=== PATIENT | female | born 1985 | race Caucasian/White ===

== ENCOUNTER → 2021-09-26 14:46 | Outpatient (BNVA) | payer BC, SELFPAY | PROVIDERS: Visit Provider Nurse Practitioner Family | DX: Z20.822 Contact with and (suspected) exposure to COVID-19 (principal) | CPT/HCPCS: 87635 ==

== ENCOUNTER 2022-07-28 20:46 | Inpatient (IN) | payer BC, SELFPAY ==
[2022-07-28 20:58] VITALS: BP 127/82; PULSE 101; RESP 15; TEMP 36.7; O2SAT 98; BMI 23.1
--- NOTE | 2022-07-28 23:56 | W.ED.GENADLT ---
Documented by User: JASMINA Han 07/29/22 02:09 HPI - General Adult General: Chief complaint: General Medical Stated complaint: MHE Time Seen by Provider: 07/28/22 23:06 History of Present Illness: Patient is a 36-year-old female comes to the ED for methamphetamine detox. Patient would like to get some information on facilities she can detox at. Denies any SI or HI or hallucinations. She reports that she was sober for about 3 to 4 months this year but has began using methamphetamines again. The sheriffs officer who brought patient in filled out an affidavit on patient. He stated that she texted him tonight stating that she needs help and feels like she is going to hurt herself. He also stated that she called the crisis and suicide hotline while in route to [facility]. Associated symptoms: Deny chest pain, dyspnea, headache(s), nausea, rash, palpitations or vomiting Review of Systems Const: Denies: fever(s), chills or fatigue Eyes: Denies: change in vision or eye discomfort ENMT: Denies: throat pain, odynophagia, nasal discharge or nasal congestion Card: Denies: chest pain, palpitations, edema, swelling of feet/ankles, dyspnea on exertion or orthopnea Resp: Denies: dyspnea, productive cough or non-productive cough GI: Denies: abdominal pain, nausea, vomiting, diarrhea, constipation or hematochezia : Denies: flank pain, dysuria or hematuria Musc: Denies: neck pain, back pain or extremity swelling Skin/Breast: Denies: rash or new lesions Neuro: Denies: headache(s), numbness in extremities or weakness in extremities Psych: Reports: other (Methamphetamine abuse); Denies: visual hallucinations, auditory hallucinations, suicidal ideation or homicidal ideation [facility] ED PFSH: Medical History History of suicidal ideation Methamphetamine abuse No pertinent family history Social History Smoking and tobacco status: current every day smoker Physical Exam Const: COMMON NORMALS: no acute distress, patient oriented x3 and alert GENERAL APPEARANCE: cooperative and comfortable HENMT: COMMON NORMALS: normocephalic HEAD & SCALP: normocephalic MOUTH: Normal oral and palatal mucosa present THROAT: posterior oropharynx normal and uvula midline Neck/C-Spine: COMMON NORMALS: supple GENERAL: Yes normal visual inspection Resp: COMMON NORMALS: normal respiratory effort, No retractions, No use of accessory muscles and clear to auscultation bilaterally AUSCULTATION: clear to auscultation bilaterally Cardio: COMMON NORMALS: regular rate, regular rhythm, S1 normal heart sound present, S2 normal heart sound present, No gallops present (Cardio), No clicks present (Cardio), No murmurs present (Cardio) and Peripheral pulses 2+ throughout RATE: regular rate RHYTHM: regular rhythm HEART SOUNDS: S1 normal heart sound present and S2 normal heart sound present PERIPHERAL PULSES: Peripheral pulses 2+ throughout GI: COMMON NORMALS: Normal to inspection, nondistended, normoactive bowel sounds present, Soft to palpation, non-tender and no masses PALPATION: Yes Soft to palpation : COMMON NORMALS: Yes no CVA tenderness BLADDER/KIDNEY EXAM: Yes no CVA tenderness Back/Pelvis: COMMON NORMALS: no CVA tenderness Extremity: COMMON NORMALS: normal to inspection Neuro: COMMON NORMALS: patient oriented x3 SENSORIUM/ORIENTATION: Yes alert GAIT: Yes Normal gait present Psych: COMMON NORMALS: mental status grossly normal, cooperative, normal affect and speech normal SPEECH: Yes normal speech THOUGHT CONTENT: Yes Suicidality present Skin: GENERAL SKIN EXAM: dry skin Course Consultations: Consultation #1: I contacted Dr. Torres the on-call psychiatrist and told about patient case and that she has been placed on a 96-hour hold. He excepted admission into the NPU. Time: 02:04 Vital Signs: Vital signs: Vital Signs Temperature 98.1 F 07/28/22 20:58 Pulse Rate 101 H 07/28/22 20:58 Respiratory Rate 15 07/28/22 20:58 Blood Pressure 127/82 07/28/22 20:58 Pulse Oximetry 98 07/28/22 20:58 Oxygen Delivery Me thod 07/28/22 20:58 MDM - General Adult Medical Decision Making Patient is a 36-year-old female comes to the ED for mental evaluation. who brought patient and fill out affidavit and states she needs help for methamphetamine abuse and was having thoughts of suicide. I contacted Dr. Torres the on-call psychiatrist and told him about patient case and that she has been placed on a 96-hour hold. He accepted admission of patient to the NPU. Dr. Ritchie will place the admitting orders. Lab Data 07/29/22 02:17 07/29/22 02:17 Laboratory Results WBC 14.3 10^3/uL (4.0-10.0) H 07/29/22 02:17 RBC 5.17 10^6/uL (4.1-5.3) 07/29/22 02:17 Hgb 15.4 g/dL (11.5-15.3) H 07/29/22 02:17 Hct 45.6 % (37.0-47.0) 07/29/22 02:17 MCV 88.2 fl (81-99) 07/29/22 02:17 MCH 29.8 pg (28.0-34.0) 07/29/22 02:17 MCHC 33.8 g/dL (30.0-36.0) 07/29/22 02:17 RDW 11.7 % (12.1-15.1) L 07/29/22 02:17 Plt Count 331 10^3/cmm (130-400) 07/29/22 02:17 MPV 9.7 fL (7.4-10.4) 07/29/22 02:17 Neut % (Auto) 67.8 % 07/29/22 02:17 Lymph % (Auto) 20.5 % 07/29/22 02:17 [place] % (Auto) 6.5 % 07/29/22 02:17 Eos % (Auto) 4.2 % 07/29/22 02:17 Baso % (Auto) 0.8 % 07/29/22 02:17 Neut # (Auto) 9.73 10^3/uL (1.8-7.7) H 07/29/22 02:17 Lymph # (Auto) 2.9 10^3/uL (0.8-4.8) 07/29/22 02:17 [place] # (Auto) 0.9 10^3/uL (0.2-0.9) 07/29/22 02:17 Eos # (Auto) 0.6 10^3/uL (0.0-0.8) 07/29/22 02:17 Baso # (Auto) 0.1 10^3/uL (0.0-0.1) 07/29/22 02:17 Nucleated RBC % (auto) 0 % 07/29/22 02:17 Nucleated RBCs # 0.0 /100WBC 07/29/22 02:17 Sodium 138 mmol/L (136-145) 07/29/22 02:17 Potassium 3.7 mmol/L (3.5-5.1) 07/29/22 02:17 Chloride 102 mmol/L (98-107) 07/29/22 02:17 Carbon Dioxide 27 mmol/L (22-29) 07/29/22 02:17 Anion Gap 12.7 (5-19) 07/29/22 02:17 BUN 10 mg/dL (6-20) 07/29/22 02:17 Creatinine 0.4 mg/dL (0.5-0.9) L 07/29/22 02:17 GFR Calculation 180.6 mL/min (90-130) H 07/29/22 02:17 Glucose 92 mg/dL (65-115) 07/29/22 02:17 Calculated Osmolality 285 mOsm/kg (285-295) 07/29/22 02:17 Calcium 9.5 mg/dL (8.5-10.5) 07/29/22 02:17 Total Bilirubin 0.2 mg/dL (0.15-1.2) 07/29/22 02:17 AST 18 U/L (0-32) 07/29/22 02:17 ALT 39 U/L (0-33) H 07/29/22 02:17 Alkaline Phosphatase 85 U/L (35-105) 07/29/22 02:17 Total Protein 6.9 g/dL (6.6-8.7) 07/29/22 02:17 Albumin 4.2 g/dL (3.5-5.2) 07/29/22 02:17 Globulin 2.7 g/dL (1.3-4.6) 07/29/22 02:17 Lipase 44 U/L (13-60) 07/29/22 02:17 HCG, Qual Negative (Negative) 07/29/22 02:17 Urine Color Yellow (Yellow) 07/29/22 01:27 Urine Appearance Clear (CLEAR) 07/29/22 01:27 Urine pH 5 (5-7) 07/29/22 01:27 Ur Specific [place] 1.025 (1.005-1.030) 07/29/22 01:27 Urine Protein Neg (Negative) 07/29/22 01:27 Urine Glucose (UA) 1+ (Normal) H 07/29/22 01:27 Urine Ketones Negative (Negative) 07/29/22 01:27 Urine Blood Neg (Negative) 07/29/22 01:27 Urine Nitrate Negative (Negative) 07/29/22 01:27 Urine Bilirubin Neg (Negative) 07/29/22 01:27 Urine Urobilinogen Neg mg/dL (Negative) 07/29/22 01:27 Ur Leukocyte Esterase 1+ (Negative) H 07/29/22 01:27 Urine RBC None /hpf (0-2) 07/29/22 01:27 Urine WBC 5-10 /hpf (0-5) H 07/29/22 01:27 Ur Squamous Epith Cells 15-25 /hpf (0-5) H 07/29/22 01:27 Amorphous Sediment Not Reportable 07/29/22 01:27 Urine Bacteria Trace /hpf (NONE) 07/29/22 01:27 Salicylates < 0.3 mg/dL (3-10) L 07/29/22 02:17 Urine Opiates Screen Negative ng/mL (Negative) 07/29/22 01:27 Acetaminophen < 5.0 ug/mL (10-30) L 07/29/22 02:17 Ur Barbiturates Screen Negative ng/mL (Negative) 07/29/22 01:27 Ur Phencyclidine Scrn Negative ng/mL (Negative) 07/29/22 01:27 Ur Amphetamines Screen Positive ng/mL (Negative) H 07/29/22 01:27 U Benzodiazepines Scrn Negative ng/mL (Negative) 07/29/22 01:27 Urine Cocaine Screen Negative ng/mL (Negative) 07/29/22 01:27 U Marijuana (THC) Screen Positive ng/mL (Negative) H 07/29/22 01:27 Discharge Plan Discharge Patient Disposition: Admitted As Inpatient Clinical Impression: Suicidal ideation, Methamphetamine abuse Condition: Stable Coding Level of Care Code ED Theatrical Agent for Chg Fwd Exam Comprehensive Documented by User: Raymundo Ritchie, 07/29/22 03:16 HPI - General Adult General: Chief complaint: General Medical Stated complaint: MHE Time Seen by Provider: 07/28/22 23:06 PFS ED PFSH: Medical History History of suicidal ideation Methamphetamine abuse No pertinent family history Social History Smoking and tobacco status: current every day smoker Course Vital Signs: Vital signs: Vital Signs Temperature 98.1 F 07/28/22 20:58 Pulse Rate 101 H 07/28/22 20:58 Respiratory Rate 15 07/28/22 20:58 Blood Pressure 127/82 07/28/22 20:58 Pulse Oximetry 98 07/28/22 20:58 Oxygen Delivery Me thod 07/28/22 20:58 MDM - General Adult Medical Decision Making Patient is a 36-year-old female comes to the ED for mental evaluation. who brought patient and fill out affidavit and states she needs help for methamphetamine abuse and was having thoughts of suicide. I contacted Dr. Torres the on-call psychiatrist and told him about patient case and that she has been placed on a 96-hour hold. He accepted admission of patient to the NPU. Dr. Ritchie will place the admitting orders. This patient was originally seen by Mr. Anai PA-C.? I agree with his history, evaluation, and treatment. Lab Data 07/29/22 02:17 07/29/22 02:17 Laboratory Results WBC 14.3 10^3/uL (4.0-10.0) H 07/29/22 02:17 RBC 5.17 10^6/uL (4.1-5.3) 07/29/22 02:17 Hgb 15.4 g/dL (11.5-15.3) H 07/29/22 02:17 Hct 45.6 % (37.0-47.0) 07/29/22 02:17 MCV 88.2 fl (81-99) 07/29/22 02:17 MCH 29.8 pg (28.0-34.0) 07/29/22 02:17 MCHC 33.8 g/dL (30.0-36.0) 07/29/22 02:17 RDW 11.7 % (12.1-15.1) L 07/29/22 02:17 Plt Count 331 10^3/cmm (130-400) 07/29/22 02:17 MPV 9.7 fL (7.4-10.4) 07/29/22 02:17 Neut % (Auto) 67.8 % 07/29/22 02:17 Lymph % (Auto) 20.5 % 07/29/22 02:17 [place] % (Auto) 6.5 % 07/29/22 02:17 Eos % (Auto) 4.2 % 07/29/22 02:17 Baso % (Auto) 0.8 % 07/29/22 02:17 Neut # (Auto) 9.73 10^3/uL (1.8-7.7) H 07/29/22 02:17 Lymph # (Auto) 2.9 10^3/uL (0.8-4.8) 07/29/22 02:17 [place] # (Auto) 0.9 10^3/uL (0.2-0.9) 07/29/22 02:17 Eos # (Auto) 0.6 10^3/uL (0.0-0.8) 07/29/22 02:17 Baso # (Auto) 0.1 10^3/uL (0.0-0.1) 07/29/22 02:17 Nucleated RBC % (auto) 0 % 07/29/22 02:17 Nucleated RBCs # 0.0 /100WBC 07/29/22 02:17 Sodium 138 mmol/L (136-145) 07/29/22 02:17 Potassium 3.7 mmol/L (3.5-5.1) 07/29/22 02:17 Chloride 102 mmol/L (98-107) 07/29/22 02:17 Carbon Dioxide 27 mmol/L (22-29) 07/29/22 02:17 Anion Gap 12.7 (5-19) 07/29/22 02:17 BUN 10 mg/dL (6-20) 07/29/22 02:17 Creatinine 0.4 mg/dL (0.5-0.9) L 07/29/22 02:17 GFR Calculation 180.6 mL/min (90-130) H 07/29/22 02:17 Glucose 92 mg/dL (65-115) 07/29/22 02:17 Calculated Osmolality 285 mOsm/kg (285-295) 07/29/22 02:17 Calcium 9.5 mg/dL (8.5-10.5) 07/29/22 02:17 Total Bilirubin 0.2 mg/dL (0.15-1.2) 07/29/22 02:17 AST 18 U/L (0-32) 07/29/22 02:17 ALT 39 U/L (0-33) H 07/29/22 02:17 Alkaline Phosphatase 85 U/L (35-105) 07/29/22 02:17 Total Protein 6.9 g/dL (6.6-8.7) 07/29/22 02:17 Albumin 4.2 g/dL (3.5-5.2) 07/29/22 02:17 Globulin 2.7 g/dL (1.3-4.6) 07/29/22 02:17 Lipase 44 U/L (13-60) 07/29/22 02:17 HCG, Qual Negative (Negative) 07/29/22 02:17 Urine Color Yellow (Yellow) 07/29/22 01:27 Urine Appearance Clear (CLEAR) 07/29/22 01:27 Urine pH 5 (5-7) 07/29/22 01:27 Ur Specific [place] 1.025 (1.005-1.030) 07/29/22 01:27 Urine Protein Neg (Negative) 07/29/22 01:27 Urine Glucose (UA) 1+ (Normal) H 07/29/22 01:27 Urine Ketones Negative (Negative) 07/29/22 01:27 Urine Blood Neg (Negative) 07/29/22 01:27 Urine Nitrate Negative (Negative) 07/29/22 01:27 Urine Bilirubin Neg (Negative) 07/29/22 01:27 Urine Urobilinogen Neg mg/dL (Negative) 07/29/22 01:27 Ur Leukocyte Esterase 1+ (Negative) H 07/29/22 01:27 Urine RBC None /hpf (0-2) 07/29/22 01:27 Urine WBC 5-10 /hpf (0-5) H 07/29/22 01:27 Ur Squamous Epith Cells 15-25 /hpf (0-5) H 07/29/22 01:27 Amorphous Sediment Not Reportable 07/29/22 01:27 Urine Bacteria Trace /hpf (NONE) 07/29/22 01:27 Salicylates < 0.3 mg/dL (3-10) L 07/29/22 02:17 Urine Opiates Screen Negative ng/mL (Negative) 07/29/22 01:27 Acetaminophen < 5.0 ug/mL (10-30) L 07/29/22 02:17 Ur Barbiturates Screen Negative ng/mL (Negative) 07/29/22 01:27 Ur Phencyclidine Scrn Negative ng/mL (Negative) 07/29/22 01:27 Ur Amphetamines Screen Positive ng/mL (Negative) H 07/29/22 01:27 U Benzodiazepines Scrn Negative ng/mL (Negative) 07/29/22 01:27 Urine Cocaine Screen Negative ng/mL (Negative) 07/29/22 01:27 U Marijuana (THC) Screen Positive ng/mL (Negative) H 07/29/22 01:27 Discharge Plan Discharge Patient Disposition: Admitted As Inpatient Clinical Impression: Suicidal ideation, Methamphetamine abuse Condition: Stable Coding Level of Care Code ED Theatrical Agent for Noam Khan Exam Comprehensive
[2022-07-29 02:24] LABS: Basophils # 0.1 10^3/uL (0.0-0.1); Basophils % 0.8 %; Eosinophils # 0.6 10^3/uL (0.0-0.8); Eosinophils % 4.2 %; Hematocrit 45.6 % (37.0-47.0); Hemoglobin 15.4 g/dL (11.5-15.3); Lymphocytes # 2.9 10^3/uL (0.8-4.8); Lymphocytes % 20.5 %; Mean Corpuscular HGB Conc 33.8 g/dL (30.0-36.0); Mean Corpuscular Hemoglobin 29.8 pg (28.0-34.0); Mean Corpuscular Volume 88.2 fl (81-99); Mean Platelet Volume 9.7 fL (7.4-10.4); Monocytes # 0.9 10^3/uL (0.2-0.9); Monocytes % 6.5 %; Neutrophils # 9.73 10^3/uL (1.8-7.7); Neutrophils % 67.8 %; Nucleated Red Blood Cells % 0 %; Platelet Count 331 10^3/cmm (130-400); Red Blood Count 5.17 10^6/uL (4.1-5.3); Red Cell Distribution Width 11.7 % (12.1-15.1); White Blood Count 14.3 10^3/uL (4.0-10.0)
[2022-07-29 02:42] LABS: HCG, Serum Qual Negative (Negative)
[2022-07-29 02:44] LABS: Alanine Aminotransferase 39 U/L (0-33); Albumin Level 4.2 g/dL (3.5-5.2); Alkaline Phosphatase 85 U/L (35-105); Anion Gap 12.7 (5-19); Aspartate Amino Transferase 18 U/L (0-32); Blood Urea Nitrogen 10 mg/dL (6-20); Calcium 9.5 mg/dL (8.5-10.5); Carbon Dioxide 27 mmol/L (22-29); Chloride 102 mmol/L (98-107); Globulin 2.7 g/dL (1.3-4.6); Glomerular Filtration Rate 180.6 mL/min (90-130); Glucose 92 mg/dL (65-115); Lipase 44 U/L (13-60); Osmolality Calculated 285 mOsm/kg (285-295); Potassium 3.7 mmol/L (3.5-5.1); Sodium 138 mmol/L (136-145); Total Bilirubin 0.2 mg/dL (0.15-1.2); Total Protein 6.9 g/dL (6.6-8.7)
[2022-07-29 02:48] LABS: Salicylate < 0.3 mg/dL (3-10)
[2022-07-29 02:49] LABS: Acetaminophen < 5.0 ug/mL (10-30)
[2022-07-29 02:51] LABS: Amphetamines Screen Urine Positive (Negative); Barbiturates Screen Urine Negative (Negative); Benzodiazepines Screen Urine Negative (Negative); Cocaine Screen Urine Negative (Negative); Opiate Screen Urine Negative (Negative); PCP Screen Urine Negative (Negative); THC Screen Urine Positive (Negative)
[2022-07-29 02:53] LABS: Specific Gravity, Urine 1.025 (1.005-1.030); Urine Appearance Clear (CLEAR); Urine Color Yellow (Yellow); pH Urine 5 (5-7)
[2022-07-29 02:54] LABS: Add Urine Microscopic? YES; Bilirubin Urine Neg (Negative); Blood Urine Neg (Negative); Glucose Urine UA 1+ (Normal); Ketones Urine Negative (Negative); Leukocyte Esterase Urine 1+ (Negative); Nitrate Urine Negative (Negative); Protein Urine Neg (Negative); Urobilinogen Urine Neg (Negative)
[2022-07-29 02:57] LABS: Add Urine Culture? No; Bacteria Urine TRACE /hpf; Squamous Epithelial Cell Urine 15-25 /hpf (0-5)
[2022-07-29 03:44] VITALS: BP 117/74; PULSE 95; RESP 18; TEMP 36.6; O2SAT 99
[2022-07-29 03:45] VITALS: BP 136/78; PULSE 86; RESP 14; O2SAT 99
[2022-07-29 04:18] VITALS: BP 136/78; PULSE 86; RESP 14; O2SAT 99
--- NOTE | 2022-07-29 04:40 | PC.NURSE ---
36 yr.old female admitted to #[id number] with dx of SI. Arrived to unit via w/c accompanied by ED RN and security. Mood anxious. Cooperative with assessment. Patient is involuntary. Patient was given rights and information in ED by powerhouse electrician before arriving to floor. Patient denies SI/HI or AVH. States she came to hospital in hopes of finding a place to detox and was wanting assistance in finding a rehab. Patient states she was clean for 3 months in the past year but began using to self-medicate. No c/o pain voiced. Skin assessment completed with no skin issues noted and no contraband found. Unit rules reviewed and orientated to unit. Snacks and fluids offered and taken. Escorted to room. Patient did ask for something to help with anxiety and sleep. Vistaril and trazodone given as ordered.
[2022-07-29] MEDS: trazodone 50 mg Tablet PO (05:00)
[2022-07-29] MEDS: hyDROXYzine 25 mg Capsule 50 MG PO (05:00)
[2022-07-29 06:00] VITALS: BP 119/77; PULSE 81; RESP 18; TEMP 36.9; O2SAT 99; BMI 23.1
[2022-07-29 14:00] VITALS: BP 116/55; PULSE 104; RESP 15; TEMP 37.1; O2SAT 97
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
[2022-07-29 19:44] VITALS: BP 110/66; PULSE 101; RESP 16; TEMP 37.1; O2SAT 99
[2022-07-30 06:00] VITALS: BP 121/73; PULSE 90; RESP 16; TEMP 36.7; O2SAT 100
[2022-07-30 14:00] VITALS: BP 111/61; PULSE 105; RESP 18; TEMP 36.9; O2SAT 98
--- NOTE | 2022-07-30 17:08 | P.NPUPN_ITS ---
Subjective NPU Subjective: Patient is a 36-year-old white female admitted with suicidal ideation with significant amphetamine dependence. The patient had reported that she wished to consider inpatient substance abuse treatment but was also agreeable to completing outpatient referrals for substance abuse as well. She r eports considerable depression with lack of motivation and low energy and continued feelings of hopelessness. She had reported an inability to remain current clean with increased tolerance and significant withdrawal symptoms associated particularly with her drug of choice, methamphetamine. Patient reported previously having a good response with Prozac for depression and was agreeable to reinitiation of this medication. Mental Status Exam MSE Comments: She is a casually dressed thin white female who appeared older than her stated age. She had fair eye contact and an unsteady gait. She did not appear to have any tremors there is no evidence of any abnormal involuntary motor movements or tics appreciated. Her mood was described as depressed. Her affect was restricted in range. Her thought process was linear logical and goal-directed. Her thought content showed no evidence of active homicidal ideation although she endorsed some suicidal ideation with no active plan. She did not appear to be responding to internal stimuli. There was no evidence of any delusional thinking. Her attention and concentration appeared variable. Her insight was limited. Her judgment was poor. Her impulse control remained poor.. Vitals/I&O/Wt Last Vital Signs Temp 98.5 F 07/30/22 14:00 Pulse 105 H 07/30/22 14:00 Resp 18 07/30/22 14:00 BP 111/61 07/30/22 14:00 Pulse Ox 98 07/30/22 14:00 O2 Del Method 07/29/22 06:00 Weight last 48 hrs Weight 55.61 kg Weight 55.61 kg Data NPU 07/29/22 02:17 07/29/22 02:17 A&P Assessment and plan (1) Depression, unspecified: (2) Suicidal ideation: (3) Methamphetamine abuse: Plan Patient is a 36-year-old white female with an extended history of methamphetamine abuse and depression reporting depressed mood and suicidal ideation with patient requesting help for stimulant abuse. She would likely benefit from inpatient substance abuse treatment. 1.? Restart prozac 20mg in am. 2.? Encourage individual, group and milieu therapy 3.? Continue q-15 minute check for safety 4. Recommend sober living treatment at the highest level of care to which the patient is willing to commit. Inpatient and outpatient referral for substance abuse treatment being completed with likelihood that the patient will be on a waiting list for an inpatient hospital bed. Involuntary Hold Information 96 Hour Hold: 96 Hour Involuntary Admission: Yes 96 Hour Hold Ending Date: 08/03/22 96 Hour Hold Ending Time: 03:03 Attestations NPU Medical Necessity Statement*: Inpatient hospitalization is medically necessary and the clinically appropriate intervention at this time.? We will monitor medications and titrate and make changes as indicated with likely length of stay 5-7 days. 1. Consider SSRI for management of depression 2. TO-15 minute checks on unit 3. Engage patient in individual and milieu therapy 4. Encourage sober living treatment after discharge at the highest level of care to which he is willing to commit. Coding Level of Care Code Established Pt Acute International Coordinator for Noam Khan Patient Type Established History Problem Focused Exam Problem Focused Medical Decision Making Straight Forward Diagnoses Depression, unspecified F32.A Suicidal ideation R45.851 Methamphetamine abuse F15.10
[2022-07-30] MEDS: fluoxetine 20 mg Capsule PO (17:24)
[2022-07-30 20:29] VITALS: BP 125/79; PULSE 111; RESP 16; TEMP 37.1; O2SAT 98
[2022-07-30] MEDS: trazodone 50 mg Tablet PO ×2 (21:38→22:49)
[2022-07-30] MEDS: hyDROXYzine 25 mg Capsule 50 MG PO (22:49)
[2022-07-31 06:00] VITALS: BP 115/79; PULSE 96; RESP 16; TEMP 36.9; O2SAT 96
[2022-07-31] MEDS: fluoxetine 20 mg Capsule PO (09:19)
[2022-07-31 14:00] VITALS: BP 106/62; PULSE 98; RESP 16; TEMP 36.6; O2SAT 99
--- NOTE | 2022-07-31 17:46 | P.NPUPN_ITS ---
Subjective NPU Subjective: Patient is a 36-year-old white female admitted with suicidal ideation with significant amphetamine dependence. The patient had reported that she wished to consider inpatient substance abuse treatment but was also agreeable to completing outpatient referrals for substance abuse as well. She h ad reported feeling less depressed. She reported continued problems with low energy and low motivation. She reported no side effects from the initiation of Prozac. She had reported some difficulties with sleep. She reported no cravings for amphetamines at this time. She again reported motivation and desire to consider inpatient substance abuse treatment if possible. Mental Status Exam MSE Comments: She is a casually dressed thin white female who appeared older than her stated age. She had fair eye contact and an unsteady gait. She did not appear to have any tremors there is no evidence of any abnormal involuntary motor movements or tics appreciated. Her mood was described as okay. Her af fect was restricted in range and mood congruent. Her thought process was linear logical and goal-directed. Her thought content showed no evidence of active homicidal ideation although she endorsed some suicidal ideation with no active plan. She did not appear to be responding to internal stimuli. There was no evidence of any delusional thinking. Her attention and concentration appeared variable. Her insight was limited. Her judgment was poor. Her impulse control was improving. Vitals/I&O/Wt Last Vital Signs Temp 97.8 F 07/31/22 14:00 Pulse 98 07/31/22 14:00 Resp 16 07/31/22 14:00 BP 106/62 07/31/22 14:00 Pulse Ox 99 07/31/22 14:00 O2 Del Method 07/31/22 14:00 Data NPU 07/29/22 02:17 07/29/22 02:17 A&P Assessment and plan (1) Depression, unspecified: (2) Suicidal ideation: (3) Methamphetamine abuse: Plan Patient is a 36-year-old white female with an extended history of methamphetamine abuse and depression reporting depressed mood and suicidal ideation with patient requesting help for stimulant abuse. She would likely benefit from inpatient substance abuse treatment. 1.? Increase prozac to 30mg in am. 2.? Encourage individual, group and milieu therapy 3.? Continue q-15 minute check for safety 4. Recommend sober living treatment at the highest level of care to which the patient is willing to commit. Inpatient and outpatient referral for substance abuse treatment being completed with likelihood that the patient will be on a waiting list for an inpatient hospital bed. Involuntary Hold Information 96 Hour Hold: 96 Hour Involuntary Admission: Yes 96 Hour Hold Ending Date: 08/03/22 96 Hour Hold Ending Time: 03:03 Attestations NPU Medical Necessity Statement*: Inpatient hospitalization is medically necessary and the clinically appropriate intervention at this time.? We will monitor medications and titrate and make changes as indicated with likely length of stay 5-7 days. Coding Level of Care Code Established Pt Acute Produce Department Supervisor for Johng Fwd Patient Type Established History Problem Focused Exam Problem Focused Medical Decision Making Straight Forward Diagnoses Depression, unspecified F32.A Suicidal ideation R45.851 Methamphetamine abuse F15.10
[2022-07-31 20:14] VITALS: BP 130/87; PULSE 110; RESP 17; TEMP 37.1; O2SAT 99
[2022-08-01 06:00] VITALS: BP 134/75; PULSE 97; RESP 17; TEMP 36.8; O2SAT 95
[2022-08-01] MEDS: fluoxetine 20 mg Capsule PO (09:39)
[2022-08-01 14:00] VITALS: BP 122/70; PULSE 95; RESP 18; TEMP 36.7; O2SAT 98
--- NOTE | 2022-08-01 18:07 | W.PM.NPUPNS ---
Subjective NPU Subjective: Patient is a 36-year-old white female admitted with suicidal ideation with significant amphetamine dependence. The patient had reported consideration for inpatient substance abuse rehabilitation but would be agreeable to outpatient treatment if it was the only possibility. She reported no cravings for methamphetamine. She continued to report depressed mood but states that she was feeling more hopeful. She reported no sleep continuity disruption today. She had expressed an extended period of time using methamphetamine without any treatment but stated that she had not come to a point where there were no other choices left for her. She had minimized any suicidal thoughts at this time. Mental Status Exam MSE Comments: She is a casually dressed thin white female who appeared older than her stated age. She had fair eye contact and normal gait. She did not appear to have any tremors there is no evidence of any abnormal involuntary motor movements or tics appreciated. Her mood was described as okay. Her affect was restricted in range and mood incongruent. Her thought process was linear logical and goal-directed. Her thought content showed no evidence of active homicidal ideation although she endorsed some suicidal ideation with no active plan. She did not appear to be responding to internal stimuli. There was no evidence of any delusional thinking. Her attention and concentration appeared variable. Her insight was limited. Her judgment was poor. Her impulse control was improving. Vitals/I&O/Wt Last Vital Signs Temp 98.1 F 08/01/22 14:00 Pulse 95 08/01/22 14:00 Resp 18 08/01/22 14:00 BP 122/70 08/01/22 14:00 Pulse Ox 98 08/01/22 14:00 O2 Del Method 07/31/22 14:00 Data NPU 07/29/22 02:17 07/29/22 02:17 A&P Assessment and plan (1) Depression, unspecified: (2) Suicidal ideation: (3) Methamphetamine abuse: Plan Patient is a 36-year-old white female with an extended history of methamphetamine abuse and depression reporting depressed mood and suicidal ideation with patient requesting help for stimulant abuse. She would likely benefit from inpatient substance abuse treatment. 1.? Increase prozac to 40mg in am tommorow. 2.? Encourage individual, group and milieu therapy 3.? Continue q-15 minute check for safety 4. Recommend sober living treatment at the highest level of care to which the patient is willing to commit. Inpatient and outpatient referral for substance abuse treatment being completed with likelihood that the patient will be on a waiting list for an inpatient hospital bed.-likely discharge tommorow. Involuntary Hold Information 96 Hour Hold: 96 Hour Involuntary Admission: Yes 96 Hour Hold Ending Date: 08/03/22 96 Hour Hold Ending Time: 03:03 Attestations NPU Medical Necessity Statement*: Inpatient hospitalization is medically necessary and the clinically appropriate intervention at this time.? We will monitor medications and titrate and make changes as indicated with likely length of stay 5-7 days. Coding Level of Care Code Established Pt Acute Automotive Quality Manager for Johng Fweli Patient Type Established History Problem Focused Exam Problem Focused Medical Decision Making Straight Forward Diagnoses Depression, unspecified F32.A Suicidal ideation R45.851 Methamphetamine abuse F15.10
[2022-08-01] MEDS: trazodone 50 mg Tablet PO (20:08)
[2022-08-01] MEDS: hyDROXYzine 25 mg Capsule 50 MG PO (20:08)
[2022-08-01 20:16] VITALS: BP 143/93; PULSE 108; RESP 17; O2SAT 99
[2022-08-02 06:00] VITALS: RESP 15
[2022-08-02] MEDS: fluoxetine 20 mg Capsule PO (08:18)
[2022-08-02] MEDS: fluoxetine 10 mg Capsule PO (08:18)
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
[2022-08-02 13:04] VITALS: BP 143/93; PULSE 108; RESP 15; TEMP 36.7; O2SAT 99
== END 2022-08-02 13:50 | disposition home or self-care (01) | DRG 881 ==
LOC: ER 07-29 02:24 → NP 07-29 03:19
PROVIDERS: Admitting Provider Psychiatry & Neurology Psychiatry; Emergency Provider Physician Assistant; PCP Nurse Practitioner Family; Visit Provider Psychiatry & Neurology Psychiatry
DX: F32.A Depression, unspecified (principal); R45.851 Suicidal ideations; F15.20 Other stimulant dependence, uncomplicated; F17.200 Nicotine dependence, unspecified, uncomplicated; Z62.810 Personal history of physical and sexual abuse in childhood; Z62.811 Personal history of psychological abuse in childhood; Z81.3 Family history of other psychoactive substance abuse and dependence; Z81.8 Family history of other mental and behavioral disorders
CPT/HCPCS: 80053; 80306; 80307; 81001; 83690; 84703; 85025; 97150; 97165; 99285

== ENCOUNTER 2022-08-03 08:49 | Emergency (ER) | payer BC, SELFPAY ==
[2022-08-03 08:59] VITALS: BP 124/66; PULSE 107; RESP 14; TEMP 36.8; O2SAT 98; BMI 23.0
[2022-08-03 09:56] LABS: Add Urine Microscopic? NO; Charge for UA Resulting for Rev
[2022-08-03 10:01] LABS: Bilirubin Urine Neg (Negative); Blood Urine Neg (Negative); Glucose Urine UA Norm (Normal); Ketones Urine Negative (Negative); Leukocyte Esterase Urine Negative (Negative); Nitrate Urine Negative (Negative); Protein Urine Neg (Negative); Urine Appearance Clear (CLEAR); Urine Color Yellow (Yellow); Urobilinogen Urine Norm (Negative); pH Urine 7 (5-7)
[2022-08-03 10:08] LABS: Basophils # 0.1 10^3/uL (0.0-0.1); Basophils % 0.6 %; Eosinophils # 0.2 10^3/uL (0.0-0.8); Hematocrit 44.3 % (37.0-47.0); Hemoglobin 14.4 g/dL (11.5-15.3); Lymphocytes # 0.4 10^3/uL (0.8-4.8); Mean Corpuscular HGB Conc 32.5 g/dL (30.0-36.0); Mean Corpuscular Hemoglobin 29.4 pg (28.0-34.0); Mean Corpuscular Volume 90.4 fl (81-99); Mean Platelet Volume 10.2 fL (7.4-10.4); Monocytes % 10.6 %; Neutrophils % 82.4 %; Nucleated Red Blood Cells % 0 %; Platelet Count 212 10^3/cmm (130-400); Red Cell Distribution Width 11.6 % (12.1-15.1); White Blood Count 9.5 10^3/uL (4.0-10.0)
[2022-08-03 10:28] LABS: Alanine Aminotransferase 330 U/L (0-33); Alkaline Phosphatase 140 U/L (35-105); Blood Urea Nitrogen 8 mg/dL (6-20); Calcium 9.6 mg/dL (8.5-10.5); Carbon Dioxide 16 mmol/L (22-29); Chloride 102 mmol/L (98-107); Globulin 2.9 g/dL (1.3-4.6); Glomerular Filtration Rate 251.7 mL/min (90-130); Glucose 108 mg/dL (65-115); Osmolality Calculated 271 mOsm/kg (285-295); Sodium 131 mmol/L (136-145); Total Bilirubin 0.3 mg/dL (0.15-1.2); Total Protein 6.9 g/dL (6.6-8.7)
--- NOTE | 2022-08-03 10:31 | ED_ITS ---
HPI - General Adult General: Chief complaint: General Medical Stated complaint: withdrawals Time Seen by Provider: 08/03/22 09:07 Source: patient Mode of arrival: ambulatory History of Present Illness: 36-year-old female presents emergency room complaining withdraws. She states she has not used methamphetamine in over a week and feels jittery is nauseous has a cough and a low-grade fever at home significant myalgias. Additionally she has had dysuria and urgency. Onset (ago): hour(s) Relieving factors: none Exacerbating factors: none Associated symptoms: Reports decreased appetite, fevers/chills, headache(s), malaise, nausea and palpitations; Deny chest pain, confusion, cough, diaphoresis, dyspnea, rash, seizures, short of breath, syncope, vomiting or weakness Treatments prior to arrival: none Review of Systems Const: Reports: fever(s), chills, fatigue and malaise; Denies: diaphoresis ENMT: Denies: throat pain, ear or mastoid pain, nasal discharge or nasal congestion Card: Reports: palpitations; Denies: chest pain or syncope Resp: Reports: non-productive cough; Denies: dyspnea, productive cough or wheezing GI: Reports: abdominal pain and nausea; Denies: vomiting : Denies: flank pain, difficulty voiding, dysuria, urinary frequency or ur inary urgency Skin/Breast: Denies: rash Neuro: Reports: headache(s); Denies: confusion PFSH ED 2 PFSH: Medical History History of suicidal ideation Methamphetamine abuse No pertinent family history Social History Smoking and tobacco status: current every day smoker Female Reproductive History: Date of last menstrual period: 07/13/22 Physical Exam Const: COMMON NORMALS: no acute distress GENERAL APPEARANCE: cooperative and comfortable ORIENTATION/CONSCIOUSNESS: Yes awake, Yes oriented to person, Yes oriented to place and Yes oriented to time HENMT: COMMON NORMALS: normocephalic, atraumatic and hearing grossly normal bilaterally HEAD & SCALP: normocephalic and atraumatic Resp: COMMON NORMALS: normal respiratory effort, No retractions, No use of accessory muscles and clear to auscultation bilaterally AUSCULTATION: clear to auscultation bilaterally Cardio: COMMON NORMALS: regular rate, regular rhythm and No murmurs present (Cardio) RATE: regular rate RHYTHM: regular rhythm GI: COMMON NORMALS: Soft to palpation and No hepatosplenomegaly present AUSCULTATION: Yes normoactive bowel sounds PALPATION: Yes Soft to palpation, No Tenderness to palpation present (GI), No Guarding due to palpation present (GI) and Yes No hepatosplenomegaly present Extremity: COMMON NORMALS: normal to inspection, capillary refill normal, no clubbing, cyanosis or edema, no calf tenderness and no pedal edema Neuro: SENSORIUM/ORIENTATION: Yes oriented to person, Yes oriented to place and Yes oriented to time Skin: COMMON NORMALS: no rashes or lesions noted GENERAL SKIN EXAM: no rash es or lesions noted Course Vital Signs: Vital signs: Vital Signs Temperature 98.3 F 08/03/22 08:59 Pulse Rate 107 H 08/03/22 08:59 Respiratory Rate 14 08/03/22 08:59 Blood Pressure 124/66 08/03/22 08:59 Pulse Oximetry 98 08/03/22 08:59 Oxygen Delivery Me thod 08/03/22 08:59 MDM - General Adult Medical Decision Making Viral upper respiratory infection based on her lab pattern is strongly suspect she has COVID. We will discharge patient home we will contact her with the results when they return. Patient. She is promethazine as needed for nausea and vomiting. Medical Records I reviewed the patient's medical records. Lab Data I reviewed the patient's lab results. 08/03/22 10:01 08/03/22 10:01 Laboratory Results WBC 9.5 10^3/uL (4.0-10.0) 08/03/22 10:01 RBC 4.90 10^6/uL (4.1-5.3) 08/03/22 10:01 Hgb 14.4 g/dL (11.5-15.3) 08/03/22 10:01 Hct 44.3 % (37.0-47.0) 08/03/22 10:01 MCV 90.4 fl (81-99) 08/03/22 10:01 MCH 29.4 pg (28.0-34.0) 08/03/22 10:01 MCHC 32.5 g/dL (30.0-36.0) 08/03/22 10:01 RDW 11.6 % (12.1-15.1) L 08/03/22 10:01 Plt Count 212 10^3/cmm (130-400) 08/03/22 10:01 MPV 10.2 fL (7.4-10.4) 08/03/22 10:01 Neut % (Auto) 82.4 % 08/03/22 10:01 Lymph % (Auto) 4.0 % 08/03/22 10:01 [place] % (Auto) 10.6 % 08/03/22 10:01 Eos % (Auto) 2.0 % 08/03/22 10:01 Baso % (Auto) 0.6 % 08/03/22 10:01 Neut # (Auto) 7.80 10^3/uL (1.8-7.7) H 08/03/22 10:01 Lymph # (Auto) 0.4 10^3/uL (0.8-4.8) L 08/03/22 10:01 [place] # (Auto) 1.0 10^3/uL (0.2-0.9) H 08/03/22 10:01 Eos # (Auto) 0.2 10^3/uL (0.0-0.8) 08/03/22 10:01 Baso # (Auto) 0.1 10^3/uL (0.0-0.1) 08/03/22 10:01 Nucleated RBC % (auto) 0 % 08/03/22 10:01 Nucleated RBCs # 0.0 /100WBC 08/03/22 10:01 Sodium 131 mmol/L (136-145) L 08/03/22 10:01 Potassium 4.0 mmol/L (3.5-5.1) 08/03/22 10:01 Chloride 102 mmol/L (98-107) 08/03/22 10:01 Carbon Dioxide 16 mmol/L (22-29) L 08/03/22 10:01 Anion Gap 17.0 (5-19) 08/03/22 10:01 BUN 8 mg/dL (6-20) 08/03/22 10:01 Creatinine 0.3 mg/dL (0.5-0.9) L 08/03/22 10:01 GFR Calculation 251.7 mL/min (90-130) H 08/03/22 10:01 Glucose 108 mg/dL (65-115) 08/03/22 10:01 Calculated Osmolality 271 mOsm/kg (285-295) L 08/03/22 10:01 Calcium 9.6 mg/dL (8.5-10.5) 08/03/22 10:01 Total Bilirubin 0.3 mg/dL (0.15-1.2) 08/03/22 10:01 AST 116 U/L (0-32) H 08/03/22 10:01 ALT 330 U/L (0-33) H 08/03/22 10:01 Alkaline Phosphatase 140 U/L (35-105) H 08/03/22 10:01 Total Protein 6.9 g/dL (6.6-8.7) 08/03/22 10:01 Albumin 4.0 g/dL (3.5-5.2) 08/03/22 10:01 Globulin 2.9 g/dL (1.3-4.6) 08/03/22 10:01 Urine Color Yellow (Yellow) 08/03/22 09:50 Urine Appearance Clear (CLEAR) 08/03/22 09:50 Urine pH 7 (5-7) 08/03/22 09:50 Ur Specific [place] 1.010 (1.005-1.030) 08/03/22 09:50 Urine Protein Neg (Negative) 08/03/22 09:50 Urine Glucose (UA) Norm (Normal) 08/03/22 09:50 Urine Ketones Negative (Negative) 08/03/22 09:50 Urine Blood Neg (Negative) 08/03/22 09:50 Urine Nitrate Negative (Negative) 08/03/22 09:50 Urine Bilirubin Neg (Negative) 08/03/22 09:50 Urine Urobilinogen Norm mg/dL (Negative) 08/03/22 09:50 Ur Leukocyte Esterase Negative (Negative) 08/03/22 09:50 Discharge Plan Discharge Patient Disposition: Home Clinical Impression: Viral URI with cough, Suspected COVID-19 virus infection Condition: Stable Prescriptions: New promethazine 25 mg tablet 25 mg PO Q6H PRN (Reason: nausea and vomiting) Qty: 10 0RF No Action clindamycin HCl 150 mg capsule 300 mg PO TID 7 Days Qty: 42 0RF fluoxetine 20 mg Capsule 40 mg PO DAILY 30 Days Qty: 60 1RF trazodone 50 mg Tablet 50 mg PO BEDTIME 30 Days Qty: 30 1RF Discharge Orders: Discharge ED (Routine); Ordered 08/03/22 Ordered By: Benny Lindo Referrals: Priya Sanches FNP-C [Primary Care Provider] - Discharge Diet: Usual diet Discharge Activity: Increase activity as tolerated Patient Instructions: COVID-19 (Coronavirus Disease 2019) (ED), Opioid Safety, Pain Management Coding Level of Care Code ED Supervisor Customer Records Division for Chg Fwd Exam Detailed
[2022-08-03 10:33] LABS: Aspartate Amino Transferase 116 U/L (0-32)
[2022-08-03] MEDS: promethazine 25 mg/mL SDV 1 mL IM (10:55)
[2022-08-03] MEDS: sodium chloride 0.9% 1,000 ML 999 ML IV (10:55)
[2022-08-03 15:19] LABS: Adenovirus Not Detected (NOT DETECT); Chlamydia Pneumoniae Not Detected (NOT DETECT); Coronavirus 229E,HKU1,NL63,OC4 Not Detected (NOT DETECT); Human Metapneumovirus Not Detected (NOT DETECT); Human Rhinovirus/Enterovirus Not Detected (NOT DETECT); Influenza A Not Detected (NOT DETECT); Influenza A H1 Not Detected (NOT DETECT); Influenza A H1-2009 Not Detected (NOT DETECT); Influenza A H3 Not Detected (NOT DETECT); Influenza B Not Detected (NOT DETECT); Mycoplasma Pneumoniae Not Detected (NOT DETECT); Parainfluenza Virus Type 1 Not Detected (NOT DETECT); Parainfluenza Virus Type 2 Not Detected (NOT DETECT); Parainfluenza Virus Type 3 Not Detected (NOT DETECT); Parainfluenza Virus Type 4 Not Detected (NOT DETECT); Respiratory Syncytial Virus A Not Detected (NOT DETECT); Respiratory Syncytial Virus B Not Detected (NOT DETECT); SARS-COV-2 Detected (NOT DETECT)
== END 2022-08-03 11:48 | disposition home or self-care (01) ==
PROVIDERS: Emergency Provider Family Medicine; PCP Nurse Practitioner Family
DX: U07.1 COVID-19 (principal); F17.210 Nicotine dependence, cigarettes, uncomplicated
CPT/HCPCS: 80053; 81003; 85025; 87635; 96360; 96372; 99284; J2550; J7030

== ENCOUNTER 2023-06-29 08:36 | Emergency (ER) | payer SELFPAY ==
[2023-06-29 08:49] VITALS: BP 162/91; PULSE 75; RESP 16; TEMP 36.9; O2SAT 99; BMI 26.4
--- NOTE | 2023-06-29 09:15 | ED_ITS ---
HPI - Dental/Oral General: Chief complaint: Dental/Oral Stated complaint: jaw pain History of Present Illness: Soledad Torres is a 37-year-old female that presents to the emergency department with dental pain. Patient states onset was about 48 to 72 hours ago. She has been taking over-t he-counter remedies and using things like clove oil and salt water rinses without relief. Patient states has had chronic dental pain issues. She does not have a dentist She denies any difficulty swallowing, pain in the floor of her mouth. She reports increased pain in the right side of her face when she bites down. She is able to pinpoint pain to the tooth Associated symptoms: Denies ear or mastoid pain, fever(s) or odynophagia Review of Systems General: Reports: 10 or more systems reviewed and unremarkable except in HPI and below Const: Denies: fever(s), chills, change in appetite, change in weight, fatigue or malaise Eyes: Denies: change in vision, eye discomfort, eye discharge or eye redness ENMT: Denies: throat pain, enlarged tonsils, odynophagia, hoarseness, ear or mastoid pain, ear discharge, change in hearing, tinnitus, nasal discharge, nasal congestion, post nasal drip or sinus pain Card: Denies: chest pain, palpitations, irregular heart rhythm, edema, dyspnea on exertion, orthopnea or leg pain with exertion Resp: Denies: dyspnea, productive cough, non-productive cough, wheezing, stridor or chest congestion GI: Denies: abdominal pain, nausea, vomiting, dysphagia, diarrhea, constip ation, bloating, GI cramping or hematochezia : Denies: flank pain, difficulty voiding, dysuria, urinary frequency, urinary urgency, urinary hesitancy, oliguria or hematuria Musc: Denies: neck pain, back pain, extremity pain, joint pain, joint swelling, joint redness, joint warmth or muscle weakness Skin/Breast: Denies: rash, pruritus, erythema, photosensitivity or new lesions Neuro: Denies: headache(s), numbness in extremities, weakness in extremities, sensory changes, lack of coordination, difficulty walking, frequent falls, dizziness, confusion, Slurred speech present, difficulty communicating thoughts, seizure-like activity or involuntary movements Endo: Denies: polyuria, polydipsia or tired all the time Edward/Lymph: Denies: easy bruising or easy bleeding PFS ED PFSH: Medical History History of suicidal ideation Methamphetamine abuse No pertinent family history Social History Smoking and tobacco/nicotine status: current every day tobacco/nicotine user Female Reproductive History: Date of last menstrual period: 05/31/23 Physical Exam Const: COMMON NORMALS: no acute distress, patient oriented x3 and alert GENERAL APPEARANCE: cooperative ORIENTATION/CONSCIOUSNESS: Yes awake, Yes oriented to person, Yes oriented to place and Yes oriented to time HENMT: COMMON NORMALS: normocephalic and atraumatic HEAD & SCALP: normoc ephalic and atraumatic FACE & SINUS: normal facial exam MOUTH: Normal oral and palatal mucosa present TEETH & GINGIVA IMAGES: 1. Pain, fractured tooth, exposed root 2. Fractured tooth, exposed root 3. Missing 4. Missing tooth 5. Missing 6. Fracture THROAT: posterior oropharynx normal Eye: COMMON NORMALS: Equal, round and reactive pupils present, EOMs intact bilaterally, conjunctivae normal and no scleral icterus GENERAL EYE: appearance normal, both eyes and all related structures ALIGNMENT: Yes alignment normal PERIORBITAL: periorbital findings normal CONJUNCTIVA: Yes conjunctivae normal PUPIL: Yes Equal, round and reactive pupils present Neck/C-Spine: COMMON NORMALS: full ROM GENERAL: Yes normal visual inspect ion Lymph: LYMPHATIC: no lymphadenopathy noted Chest: COMMONS NORMALS: normal inspection of the chest Breast/axilla inspection: Yes no chest deformity, asymmetry, normal contours, no nodules, masses, tenderness Resp: COMMON NORMALS: normal respiratory effort, No retractions and No use of accessory muscles EFFORT & INSPECTION: Yes able to speak in complete sentences and Yes symmetric chest movement Cardio: COMMON NORMALS: regular rate and Peripheral pulses 2+ throughout RATE: regular rate PERIPHERAL PULSES: Peripheral pulses 2+ throughout GI: COMMON NORMALS: non-tender INSPECTION: Yes normal to inspection RECTAL EXAM: deferred Extremity: COMMON NORMALS: normal to inspection GENERAL: Yes normal exam except as noted Neuro: COMMON NORMALS: patient oriented x3 SENSORIUM/ORIENTATION: Yes alert, Yes oriented to person, Yes oriented to place and Yes oriented to time CRANIAL NERVES: Yes CN normal except as noted Psych: COMMON NORMALS: mental status grossly normal, Normal thought process present, cooperative, activity/motor behavior normal, denies homicidal ideation and denies suicidal ideation THOUGHT PROCESS: Normal thought process present Skin: COMMON NORMALS: no rashes or lesions noted, no wounds and turgor normal GENERAL SKIN EXAM: no rashes or lesions noted and turgor normal Course Vital Signs: Vital signs: Vital Signs Temperature 98.4 F 06/29/23 08:49 Pulse Rate 75 06/29/23 08:49 Respiratory Rate 16 06/29/23 08:49 Blood Pressure 162/91 06/29/23 08:49 Pulse Oximetry 99 06/29/23 08:49 Oxygen Delivery Me thod Room Air 06/29/23 08:49 MDM - Dental/Oral Medical Decision Making Patient was evaluated in the emergency department due to dental pain. Differential diagnosis includes ludwigs angina, abscess, fractures, infection Patient has no pain in the floor the mouth, no swelling to her oral cavity or floor of the mouth. No lymphadenopathy. Pain seems to be isolated over tooth four. This tooth does have exposed root decay and is fractured. Patient was treated here in the emergency department with ketorolac, Zofran, clindamycin. She is going to be discharged home with a list of dental resources, prescriptions for Toradol and clindamycin and Zofran. She has been instructed to follow-up with dentist this week. She needs to call for appointments. She is to return to the emergency department for new, concerning, worsening symptoms No radiology studies performed this visit Discharge Plan Discharge Patient Disposition: Home Clinical Impression: Toothache, Fracture of tooth, Gingival abscess Condition: Stable Prescriptions: New clindamycin HCl 150 mg capsule 450 mg PO TID 7 Days Qty: 63 0RF ondansetron 4 mg tablet,disintegrating 4 mg PO Q8H 5 Days Qty: 15 0RF ketorolac 10 mg tablet 10 mg PO Q8H 4 Days Qty: 20 0RF Discharge Orders: Discharge ED (Routine); Ordered 06/29/23 Ordered By: Lorena Meza Referrals: Priya Sanches FNP-C [Primary Care Provider] - Discharge Diet: Advance as tolerated Discharge Activity: Resume usual activity Patient Instructions: Dental Caries (Cavities), Toothache (ED), Pain Management Activity Restrictions/Additional Instructions: Please follow-up with the dental resources that we have provided you in a list. Please return to the emergency department for new, concerning, worsening symptoms. Take the antibiotics as well as pain and nausea medications as directed Coding Level of Care Code ED Emt Dispatcher for Noam Khan
[2023-06-29] MEDS: clindamycin 150 mg Capsule 450 MG PO (10:03)
[2023-06-29] MEDS: ondansetron 4 MG Tablet PO (10:04)
[2023-06-29] MEDS: ketorolac 60 mg/2 mL INJ IM (10:04)
[2023-06-29 10:38] VITALS: PULSE 90; RESP 15; O2SAT 97
== END 2023-06-29 10:38 | disposition home or self-care (01) ==
PROVIDERS: Emergency Provider Nurse Practitioner; PCP Nurse Practitioner Family
DX: S02.5XXA Fracture of tooth (traumatic), initial encounter for closed fracture (principal); K05.20 Aggressive periodontitis, unspecified; F17.210 Nicotine dependence, cigarettes, uncomplicated; X58.XXXA Exposure to other specified factors, initial encounter
CPT/HCPCS: 96372; 99284; J1885; Q0162